=== PATIENT | male | born 1955 | race Hispanic/Latino ===

== ENCOUNTER 2017-06-19 23:58 | Emergency (ER) | payer OTHER, SELFPAY ==
[2017-06-20] MEDS ORDERED: Ketorolac Tromethamine 30 MG/ML VIAL ONE (00:33)
[2017-06-20 00:34] LABS: #Basophils 0.1 thou/uL (0.0-0.2); #Eosinphils 0.3 thou/uL (0.0-0.7); #Lymphocytes 1.9 thou/uL (1.20-3.40); #Monocytes 0.4 thou/uL (0.11-0.59); #Neutrophils 2.7 thou/uL (1.40-6.50); %Basophils 1.1 % (0.0-1.0); %Eosinophils 6.3 % (0.0-10.0); %Lymphocytes 35.3 % (21.0-51.0); %Monocytes 7.5 % (0.0-10.0); Hematocrit 40.9 % (42.0-52.0); Mean Platelet Volume 7.2 fL (7.4-10.4); Red Blood Cell (RBC) Count 4.29 mill/uL (4.70-6.10); White Blood Cell (WBC) Count 5.4 thou/uL (4.8-10.8)
[2017-06-20 00:55] LABS: ALT (SGPT) 20 U/L (8-55); AST (SGOT) 19 U/L (5-34); Alkaline Phosphatase 94 U/L (40-150); Anion Gap 9 mmol/L (10-20); BUN (Urea Nitrogen) 14 mg/dL (8.4-25.7); Bilirubin, Total 0.5 mg/dL (0.2-1.2); Calc. Creatinine Clearance 0 mL/min (70-130); Calcium 8.8 mg/dL (7.8-10.44); Carbon Dioxide 25 mmol/L (23-31); Chloride 106 mmol/L (98-107); Estimated GFR-MDRD Greater than 90; Globulin 3.2 g/dL (2.4-3.5); Lipase 110 U/L (8-78)
[2017-06-20 01:37] LABS: Bilirubin Negative (Negative); Blood, Urine Negative (Negative); Glucose, Urine (Dipstick) Negative (Negative); Ketone, Urine Negative (Negative); Nitrite Negative (Negative); Protein, Urine (Dipstick) Negative (Neg-Trace); Urobilinogen 0.2 mg/dL (0.2-1.0)
--- NOTE | 2017-06-20 08:08 | CT ---
PRELIMINARY REPORT/[facility]/EMERGENCY AFTER HOURS PROCEDURE: EXAM: CT Abdomen and Pelvis With Intravenous Contrast CLINICAL HISTORY: 62 years old, male; Pain; Abdominal pain; Generalized TECHNIQUE: Axial computed tomography images of the abdomen and pelvis with intravenous contrast. Coronal reformatted images were created and reviewed. CONTRAST: 60 mL of ISOVUE administered intravenously. COMPARISON: No relevant prior studies available. FINDINGS: The lung bases are clear. No definite gallbladder abnormality by CT. No biliary tree dilation. Unremarkable appearance of the liver, spleen, kidneys, adrenal glands, and pancreas. Possibility of slightly thickened mucosa/wall in the distal antrum of the stomach. This is [facility] appearance, and could be transient on CT, but could also represent evidence for gastritis or pe ptic ulcer disease. Please correlate clinically. No free air, ascites, or bowel distention. Very small umbilical hernia, containing only fat. No evidence for abdominal aortic aneurysm. No retroperitoneal adenopathy. CT pelvis: The appendix is visualized and appears normal. There are no CT findings to strongly suggest diverticulitis. Prostate enlargement with transverse diameter of 5.1 cm. Possibly some mild diffuse urinary bladder wall thickening. This may be related to the prostate enla rgement. While nonspecific, this could also indicate evidence for cystitis. Please correlate clinically. IMPRESSION: No free air or bowel distention. Normal appendix. No diverticulitis. Possible thickened mucosa/wall in the distal stomach, see above discussion. Prostate enlargement and mild urinary bladder wall thickening, see above. Other findings discussed above. Thank you for allowing us to participate in the care of your patient. Dictated and Authenticated by: Zechariah Linn MD 06/20/2017 1:51 AM Central Time ([place] \T\ [place]) FINAL REPORT EMERGENCY AFTER HOURS CT ABDOMEN AND PELVIS WITH IV CONTRAST: Date: 06/20/17 HISTORY: Left lower quadrant abdominal pain which radiates to left side. Onset of symptoms 2 days ago. Histor y of hernia repair 7 years ago. COMPARISON: None available. IMPRESSION: 1. Bibasilar atelectasis. 2. No acute findings are seen in the abdomen or pelvis. 3. No CT evidence of appendicitis. 4. Degenerative changes in the lumbar spine. 5. Suggested thickening of the [place] of the gastric antrum. This is probably related to incomplete distention and is overall nonspecific. Findings are in agreement with the preliminary report by Shari. POS: [facility]
[2017-06-20] MEDS ORDERED: ISOVUE-370 76%-LOCM 1 ML ONE (16:02)
== END 2017-06-20 02:11 | disposition home or self-care (01) ==
LOC: ERS 23:58
DX: R10.32 Left lower quadrant pain (principal); E11.9 Type 2 diabetes mellitus without complications; Z79.84 Long term (current) use of oral hypoglycemic drugs; Z79.899 Other long term (current) drug therapy
CPT/HCPCS: 36415; 74177; 80053; 81003; 83690; 85025; 96361; 96374; J1885

== ENCOUNTER 2020-03-04 07:34 | Emergency (ER) | payer SELFPAY ==
[2020-03-04] MEDS ORDERED: HYDROcodone/Acetaminophen 10/325 mg Tablet ONE (08:22)
== END 2020-03-04 09:40 | disposition home or self-care (01) ==
LOC: ERS 07:34
DX: B02.29 Other postherpetic nervous system involvement (principal); E11.9 Type 2 diabetes mellitus without complications; Z79.84 Long term (current) use of oral hypoglycemic drugs; Z79.899 Other long term (current) drug therapy
CPT/HCPCS: 99283

== ENCOUNTER 2020-03-05 08:57 | Emergency (ER) | payer SELFPAY | END 2020-03-05 11:25 | disposition home or self-care (01) | LOC: ERS 08:57 | DX: B02.29 Other postherpetic nervous system involvement (principal); E11.9 Type 2 diabetes mellitus without complications; Z79.899 Other long term (current) drug therapy; Z79.1 Long term (current) use of non-steroidal anti-inflammatories (NSAID); Z79.84 Long term (current) use of oral hypoglycemic drugs | CPT/HCPCS: 99284 ==